=== PATIENT | female | born 1935 | race Hispanic/Latino ===

== ENCOUNTER 2017-04-13 14:03 | Outpatient (CLI) | payer MEDICARE ==
[2017-04-13] MEDS ORDERED: NACL ONE (14:34)
--- NOTE | 2017-04-13 15:12 | Cat Scan Report ---
CT CHEST WITH CONTRAST: HISTORY: Dysphagia. COMPARISON: none. TECHNIQUE: Helical CT in 1.25mm intervals following IV contrast. Sagittal and coronal reformatted images. FINDINGS: Thyroid gland: Within normal limits. 1 cm right thyroid lobe cyst is noted. Tracheobronchial tree: Normal. Esophagus: Normal. Heart: Normal. Pericardium: Normal. Mediastinum: Mild aortic calcifications are identified. No mediastinal mass or adenopathy. Lung [place]agon[place]: Normal. Pleural Spaces: Normal. Musculoskeletal: Osteopenia. Moderate thoracic spondylosis is noted. No fracture or suspicious bony lesion. Chronic superior endplate deformity at T12 is noted. IMPRESSION: No acute cardiopulmonary process. No explanation for dysphagia.
== END 2017-04-13 14:04 | disposition home or self-care (01) ==
LOC: CT 14:03
PROVIDERS: ATTEND Internal Medicine
DX: R13.10 Dysphagia, unspecified (principal); I70.0 Atherosclerosis of aorta; M85.88 Other specified disorders of bone density and structure, other site; M47.894 Other spondylosis, thoracic region
CPT/HCPCS: 71260; Q9967

== ENCOUNTER 2019-05-27 09:35 | Outpatient (CLI) | payer MEDICARE ==
[2019-05-27 13:10] LABS: Alanine Aminotransferase 53 units/L (7-56)
[2019-05-27 13:11] LABS: Bilirubin,Direct < 0.2 mg/dL (0-0.2)
== END 2019-05-27 09:36 | disposition home or self-care (01) ==
LOC: LAB 09:35
PROVIDERS: ATTEND Internal Medicine
DX: R74.0 Nonspecific elevation of levels of transaminase and lactic acid dehydrogenase [LDH] (principal)
CPT/HCPCS: 36415; 80076

== ENCOUNTER 2021-10-16 10:56 | Outpatient (CLI) | payer MEDICARE ==
--- NOTE | 2021-10-16 12:30 | XRay Report ---
LUMBOSACRAL SPINE 3 VIEWS INDICATION: M54.50 LOW BACK PAIN. COMPARISON: None. IMPRESSION: Mild osteopenia is evident. There is normal alignment on the lateral view. Moderate dext rocurvature of the thoracolumbar spine is noted on the frontal view. 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 L2-3 and L4-5 are the most affected levels. Chronic sup erior endplate fracture at T12 with 20% loss of height is unchanged since CT chest dated 04/13/2017. N o evidence for acute injury in the lumbar region. LEFT HIP 3 VIEWS INDICATION: Pain in left hip, fall 1 week ago. COMPARISON: None. IMPRESSION: Osteopenia is evident. 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 No evidence for acute fracture, bone lesion or osteonecrosis. Visualized pelvic bones are intact . Right hip replacement appears unremarkable. Signer Name: Steven Randle Jr, MD Signed: 10/16/2021 12:24 PM Workstation Name: [id number]
== END 2021-10-16 10:57 | disposition home or self-care (01) ==
LOC: XRAY 10:56
PROVIDERS: ATTEND Internal Medicine
DX: M16.12 Unilateral primary osteoarthritis, left hip (principal); M85.88 Other specified disorders of bone density and structure, other site; M47.815 Spondylosis without myelopathy or radiculopathy, thoracolumbar region; Z96.641 Presence of right artificial hip joint
CPT/HCPCS: 72100